=== PATIENT | female | born 1945 | race Caucasian/White ===

== ENCOUNTER → 2017-03-18 | Outpatient (CLI) | payer MEDICARE, OTHER | LOC: MAMO 03-04 13:40 | DX: Z12.31 Encounter for screening mammogram for malignant neoplasm of breast (principal) | CPT/HCPCS: G0202 ==

== ENCOUNTER → 2021-01-16 | Outpatient (CLI) | payer MEDICARE, OTHER | LOC: KOH-I 10:43 | DX: M54.12 Radiculopathy, cervical region (principal); M25.511 Pain in right shoulder; M50.322 Other cervical disc degeneration at C5-C6 level | CPT/HCPCS: 72050; 73030 ==